=== PATIENT | female | born 1985 | race Caucasian/White ===

== ENCOUNTER 2016-08-19 11:05 | Emergency (ER) | payer MEDICAID ==
[~2016-08-19] VITALS: Ht 160 cm; Wt 60.0 kg
[~2016-08-19 11:05] MED LIST: CIPR500T4 PO; CLIN1CAP5 PO; DICL75 PO; LORTA5 PO; TOPA100T8 PO
[2016-08-19 11:09] VITALS: BP 148/97; PULSE 77; RESP 15; TEMP 98.2; O2SAT 98
[2016-08-19 12:12] LABS: BASOPHIL # 0.1 TH/MM3 (0-0.2); BASOPHIL % 0.7 % (0.0-2.0); EOSINOPHIL # 0.5 TH/MM3 (0-0.4); EOSINOPHIL % 6.8 % (0.0-4.0); HEMATOCRIT 40.8 % (35.0-46.0); HEMO FLAGS DIFF FINAL; LYMPH % 32.9 % (9.0-44.0); LYMPHOCYTE # 2.4 TH/MM3 (1.0-4.8); MEAN CELL VOLUME 94.1 FL (80.0-100.0); MEAN CORPUSCULAR HEMOGLOBIN 32.4 PG (27.0-34.0); MEAN CORPUSCULAR HGB CONC 34.4 % (32.0-36.0); NEUT % 53.6 % (16.0-70.0); PLATELET COUNT 265 TH/MM3 (150-450); RED BLOOD COUNT 4.34 MIL/MM3 (4.00-5.30); RED CELL DISTRIBUTION WIDTH 12.4 % (11.6-17.2); WHITE BLOOD COUNT 7.4 TH/MM3 (4.0-11.0)
[2016-08-19 12:21] LABS: BACTERIA, URINE RARE /hpf; BLOOD, URINE NEG (NEG); COMMENT (UR) CULT NOT INDICATED; CULTURE IF INDICATED CULT NOT INDICATED; GLUCOSE,URINE NEG (NEG); KETONE, URINE NEG (NEG); MUCUS URINE FEW /lpf (OCC); NITRITE,URINE NEG (NEG); SQUAMOUS EPITHELIAL CELL URINE 3 /hpf (0-5); URINE COLOR YELLOW (YELLW/STRAW)
[2016-08-19 12:32] LABS: ALT (GPT) 27 U/L (10-53); ANION GAP 7 MEQ/L (5-15); AST (GOT) 35 U/L (15-37); BICARBONATE 24.9 MEQ/L (21.0-32.0); BLOOD UREA NITROGEN 9 MG/DL (7-18); CHLORIDE 106 MEQ/L (98-107); GLOMERULAR FILTRATION RATE 86 ML/MIN (>89); POTASSIUM 3.7 MEQ/L (3.5-5.1); SODIUM (NA) 138 MEQ/L (136-145)
[2016-08-19 12:35] LABS: ALKALINE PHOSPHATASE 51 U/L (45-117); TOTAL BILIRUBIN ADULT 0.3 MG/DL (0.2-1.0)
--- NOTE | 2016-08-19 12:46 | PD ---
HPI Chief Complaint: Abdominal Pain Time Seen by Provider: 12:35 Travel History International Travel<30 days: No Contact w/Intl Traveler<30days: No Traveled to known affect area: No History of Present Illness HPI 31-year-old female complains of abdominal pain. Patient states that the pain started yesterday. Patient states the pain is sharp pain intermittent pain localized to right low quadrant of the abdomen. Patient denies any pain radiation. Patient states that she has nausea with no vomiting or diarrhea. Patient denies any fever chills. He or frequency. Patient denies any vaginal discharge or bleeding. On a scale of 1-10 the pain is an 8. PFSH Past Medical History Asthma: Yes Anxiety: Yes Depression: Yes Diminished Hearing: No Seizures: Yes ?: Not LMP: 07/2016 : 2 Para: 1 : 1 Past Surgical History Section: Yes (x2) Gynecologic Surgery: Yes () Oral Surgery: Yes (CLEFT PALATE A BABY) Other Surgery: Yes (CLEFT PALAT REPAIR CHILD) Social History Alcohol Use: Yes (occas, mix drink, beer or wine) Tobacco Use: Yes (1 ppd) Substance Use: No Allergies-Medications (Allergen,Severity, Reaction): Coded Allergies: Penicillin (Verified Allergy, Severe, HIVES, 08/19/16) Benadryl (Verified Allergy, Intermediate, DIZZY, 08/19/16) Tramadol (Verified Allergy, Intermediate, MIGRAINES, 08/19/16) Reported Meds & Prescriptions Reported Meds & Active Scripts Active No Active Prescriptions or Reported Medications Review of Systems General / Constitutional: No: Fever Eyes: No: Visual changes HENT: No: Headaches Cardiovascular: No: Chest Pain or Discomfort Respiratory: No: Shortness of Breath Gastrointestinal: Positive: Nausea, Abdominal Pain Genitourinary: No: Dysuria Musculoskeletal: No: Pain Skin: No Rash Neurologic: No: Weakness Psychiatric: No: Depression Endocrine: No: Polydipsia Hematologic/Lymphatic: No: Easy Bruising Physical Exam Narrative GENERAL: Well-nourished, well-developed patient. SKIN: Warm and dry. HEAD: Normocephalic. EYES: No scleral icterus. No injection or drainage. NECK: Supple, trachea midline. No JVD or lymphadenopathy. CARDIOVASCULAR: Regular rate and rhythm without murmurs, gallops, or rubs. RESPIRATORY: Breath sounds equal bilaterally. No accessory muscle use. GASTROINTESTINAL: Abdomen soft, nondistended. Patient has mild tenderness on palpation right lower quadrant of the abdomen. No rebound tenderness. No mass. MUSCULOSKELETAL: No cyanosis, or edema. BACK: Nontender without obvious deformity. No CVA tenderness. Neurologic exam normal. Data Data Last Documented VS Vital Signs Date Time Temp Pulse Resp B/P Pulse Ox O2 Delivery O2 Flow Rate FiO2 08/19/16 12:50 18 08/19/16 12:48 97 2 08/19/16 11:09 98.2 77 148/97 Orders Complete Blood Count With Diff (08/19/16 11:40) Comprehensive Metabolic Panel (08/19/16 11:40) Urinalysis - C+S If Indicated (08/19/16 11:40) Ed Urine Pregnancytest Poc (08/19/16 11:40) Iv Access Insert/Monitor (08/19/16 11:40) Oxygen Administration (08/19/16 11:40) Oximetry (08/19/16 11:40) Lipase (08/19/16 11:40) Ct Abd/Pel W Iv Contrast(Rout) (08/19/16 12:41) Iohexol 350 Inj (Omnipaque 350 Inj) (08/19/16 13:43) Labs Laboratory Tests Test 08/19/16 11:40 White Blood Count 7.4 TH/MM3 Red Blood Count 4.34 MIL/MM3 Hemoglobin 14.1 GM/DL Hematocrit 40.8 % Mean Corpuscular Volume 94.1 FL Mean Corpuscular Hemoglobin 32.4 PG Mean Corpuscular Hemoglobin 34.4 % Concent Red Cell Distribution Width 12.4 % Platelet Count 265 TH/MM3 Mean Platelet Volume 6.5 FL Neutrophils (%) (Auto) 53.6 % Lymphocytes (%) (Auto) 32.9 % Monocytes (%) (Auto) 6.0 % Eosinophils (%) (Auto) 6.8 % Basophils (%) (Auto) 0.7 % Neutrophils # (Auto) 4.0 TH/MM3 Lymphocytes # (Auto) 2.4 TH/MM3 Monocytes # (Auto) 0.4 TH/MM3 Eosinophils # (Auto) 0.5 TH/MM3 Basophils # (Auto) 0.1 TH/MM3 CBC Comment DIFF FINAL Differential Comment Urine Color YELLOW Urine Turbidity CLEAR Urine pH 6.0 Urine Specific [place] 1.024 Urine Protein NEG mg/dL Urine Glucose (UA) NEG mg/dL Urine Ketones NEG mg/dL Urine Occult Blood NEG Urine Nitrite NEG Urine Bilirubin NEG Urine Urobilinogen 2.0 MG/DL Urine Leukocyte Esterase TRACE Urine RBC 1 /hpf Urine WBC 1 /hpf Urine Squamous Epithelial 3 /hpf Cells Urine Bacteria RARE /hpf Urine Mucus FEW /lpf Microscopic Urinalysis Comment CULT NOT INDICATED Sodium Level 138 MEQ/L Potassium Level 3.7 MEQ/L Chloride Level 106 MEQ/L Carbon Dioxide Level 24.9 MEQ/L Anion Gap 7 MEQ/L Blood Urea Nitrogen 9 MG/DL Creatinine 0.79 MG/DL Estimat Glomerular Filtration 86 ML/MIN Rate Random Glucose 83 MG/DL Calcium Level 8.4 MG/DL Total Bilirubin 0.3 MG/DL Aspartate Amino Transf 35 U/L (AST/SGOT) Alanine Aminotransferase 27 U/L (ALT/SGPT) Alkaline Phosphatase 51 U/L Total Protein 7.5 GM/DL Albumin 3.6 GM/DL Lipase 138 U/L [facility] Medical Decision Making Medical Screen Exam Complete: Yes Emergency Medical Condition: Yes Interpretation(s) 12:45 PM. CBC within normal limit. CMP within normal limit. UA is negative. Urine test negative. 1438 PM. CBC within normal limit. CMP within normal limit. UA is negative. CT scan abdomen pelvis negative acute pathology. Differential Diagnosis Differential diagnosis including UTI, pyelonephritis, nephrolithiasis, ovarian cyst, bent torsion, ectopic , appendicitis. Narrative Course 41-year-old female with right low quadrant abdominal pain. Diagnosis Primary Impression: Ruptured ovarian cyst Patient Instructions: General Instructions Additional Instructions: Mobic as needed for pain. Follow-up with personal physician. Return if persistent pain, increasing pain, fever, persistent vomiting. Med/Other Pt SpecificInfo: Prescription(s) given Scripts Meloxicam (Mobic)15 Mg Tab15 Mg PO DAILY #20 TAB Prov:eRdd Loja MD 08/19/16 Disposition: 01 DISCHARGE HOME Condition: Stable Rded Loja MD Aug 19, 2016 12:45
[2016-08-19 12:48] VITALS: O2SAT 97
[2016-08-19] MEDS ORDERED: IOHEXOL 350 MG/ML 10 ML VIAL (for RAD DIAG) IV ONE (13:43)
--- NOTE | 2016-08-19 13:59 | RADRPT ---
EXAM DATE/TIME: 08/19/2016 13:25 [place] COMPARISON: No previous studies available for comparison. INDICATIONS: Right lower quadrant pain. IV CONTRAST: 97 cc Omnipaque 350 (iohexol) IV ORAL CONTRAST: No oral contrast ingested. RADIATION DOSE: 9.96 CTDIvol (mGy) MEDICAL HISTORY: None SURGICAL HISTORY: section. ENCOUNTER: Initial ACUITY: 1 day PAIN SCALE: 8/10 LOCATION: Right lower quadrant TECHNIQUE: Volumetric scanning of the abdomen and pelvis was performed. Using automated exposure control and ad justment of the mA and/or kV according to patient size, radiation dose was kept as low as reasonably achievable to obtain optimal diagnostic quality images. FINDINGS: Lung bases are clear. The liver is free of focal defects. Small apparent cyst is seen in the upper pole of the spleen. Pancreas, adrenals, and kidneys are unremarkable. There is symmetrical renal fu nction. Gallbladder appears unremarkable. Region of the cecum and terminal ileum unremarkable. There is a normal appearing appendix in the rig ht lower quadrant. In the pelvis the uterus is prominent. There is no adnexal mass. There is no free fluid. Abdominal wall is intact. There is no free air. CONCLUSION: Right lower quadrant is unremarkable. I do not see the etiology for the patient's pain. Jame Serrano MD FACR on August 19, 2016 at 13:46 Board Certified Radiologist. This report was verified electronically.
[2016-08-19] MEDS ORDERED: MOBI15TA PO (14:45)
== END 2016-08-19 14:56 | disposition home or self-care (01) ==
LOC: NEPA 11:05
DX: N83.299 Other ovarian cyst, unspecified side (principal); F17.210 Nicotine dependence, cigarettes, uncomplicated
CPT/HCPCS: 74177; 80053; 81001; 83690; 84703; 85025; 99284; Q9967

== ENCOUNTER 2016-10-11 10:34 | Emergency (ER) | payer SELFPAY ==
[~2016-10-11] VITALS: Ht 162.6 cm; Wt 66.4 kg
[~2016-10-11 10:34] MED LIST changes: -CIPR500T4 PO; -CLIN1CAP5 PO; -DICL75 PO; -LORTA5 PO; +MOBI15TA PO; -TOPA100T8 PO
[2016-10-11 10:45] VITALS: BP 122/79; PULSE 68; RESP 16; TEMP 98.4; O2SAT 99
[2016-10-11] MEDS ORDERED: METH40TA PO (10:54)
[2016-10-11] MEDS ORDERED: IBUP200C PO (10:54)
--- NOTE | 2016-10-11 11:06 | PD ---
HPI Chief Complaint: Headache Time Seen by Provider: 10:49 Travel History International Travel<30 days: No Contact w/Intl Traveler<30days: No Traveled to known affect area: No History of Present Illness HPI 31-year-old female presents with left-sided headache. It is been gradually getting worse. She states that she tried Motrin without relief. She states she has history of migraines. She states a couple years ago she had CT and MRI without emergent findings. She denies any trauma. Quality is throbbing. Severity is severe per patient. She denies other concurrent complaints. PFSH Past Medical History Asthma: Yes Anxiety: Yes Depression: Yes Diminished Hearing: No Seizures: Yes Influenza Vaccination: No ?: Not LMP: 09/2016 : 2 Para: 1 : 1 Past Surgical History Section: Yes (x2) Gynecologic Surgery: Yes () Oral Surgery: Yes (CLEFT PALATE A BABY) Other Surgery: Yes (CLEFT PALAT REPAIR CHILD) Social History Alcohol Use: Yes (occas, mix drink, beer or wine) Tobacco Use: Yes (1 ppd) Substance Use: Yes (PILLS) Allergies-Medications (Allergen,Severity, Reaction): Coded Allergies: Penicillin (Verified Allergy, Severe, HIVES, 10/11/16) Benadryl (Verified Allergy, Intermediate, DIZZY, 10/11/16) Tramadol (Verified Allergy, Intermediate, MIGRAINES, 10/11/16) Reported Meds & Prescriptions Reported Meds & Active Scripts Active Phenergan (Promethazine HCl) 25 Mg Tab 25 Mg PO Q6H PRN Reported Ibuprofen 200 Mg Cap 600 Mg PO Q4H PRN Methadone (Methadone HCl) 40 Mg Tab 170 Mg PO DAILY Review of Systems Except as stated in HPI: all other systems reviewed are Neg Physical Exam Narrative GENERAL: Well-nourished, well-developed patient. Well-appearing SKIN: Warm and dry. HEAD: Normocephalic and atraumatic. EYES: No injection or drainage. Pupils equal and reactive bilaterally, extraocular movement intact ENT: No nasal drainage noted. NECK: Supple, trachea midline. No meningeal signs CARDIOVASCULAR: Regular rate and rhythm RESPIRATORY: No increased effort. No accessory muscle use. GASTROINTESTINAL: Abdomen soft, non-tender, nondistended. NEUROLOGICAL: Awake and alert. Motor and sensory grossly within normal limits. Normal speech. 5 out of 5 in all 4 extremities, equal grasp bilaterally Data Data Last Documented VS Vital Signs Date Time Temp Pulse Resp B/P Pulse Ox O2 Delivery O2 Flow Rate FiO2 10/11/16 10:45 98.4 68 16 122/79 99 Orders Ondansetron Odt (Zofran Odt) (10/11/16 11:15) Ketorolac Inj (Toradol Inj) (10/11/16 11:15) MDM Medical Decision Making Medical Screen Exam Complete: Yes Emergency Medical Condition: Yes Medical Record Reviewed: Yes (past history confirmed) Differential Diagnosis Tension, migraine, cluster Narrative Course Patient with benign exam and vitals with recurrent migraine history. Agrees to supportive care. Will dose with Zofran and Toradol after review of allergies with patient and reevaluate. Patient agrees to plan Patient denies any new complaints and states that they are feeling a little better, all questions answered. Patient knows that follow up is incumbent on them and to return to the emergency room immediately if new or worsening symptoms develop. Patient given strict return precautions, vitals reviewed and are normal, agrees to further workup as an outpatient. Diagnosis Primary Impression: Cephalalgia Qualified Code: R51 - Acute nonintractable headache, unspecified headache type Patient Instructions: General Instructions Additional Instructions: alternate tylenol and motrin, phenergan as needed for nausea, set up a primary for follow up this week, return as needed Med/Other Pt SpecificInfo: Prescription(s) given, No Change to Meds Scripts Promethazine (Phenergan)25 Mg Tab25 Mg PO Q6H PRN (NAUSEA OR VOMITING) #10 TAB Prov:Galina Cullen MD 10/11/16 Disposition: 01 DISCHARGE HOME Condition: Stable Galina Cullen MD Oct 11, 2016 11:06
[2016-10-11] MEDS ORDERED: ONDANSETRON ODT 4 MG TAB PO ONE (11:15)
[2016-10-11] MEDS ORDERED: KETOROLAC TROMETHAMINE 60 MG/2 ML (IM) VIAL IM ONE (11:15)
[2016-10-11] MEDS ORDERED: PROM25TA5 PO (12:04)
== END 2016-10-11 12:17 | disposition home or self-care (01) ==
LOC: PHED 10:34
DX: R51 Headache (principal); J45.909 Unspecified asthma, uncomplicated; F17.210 Nicotine dependence, cigarettes, uncomplicated
CPT/HCPCS: 96372; 99283; J1885

== ENCOUNTER 2017-01-05 14:43 | Emergency (ER) | payer SELFPAY ==
[~2017-01-05] VITALS: Ht 162.6 cm; Wt 67.0 kg
[~2017-01-05 14:43] MED LIST changes: +IBUP200C PO; +METH40TA PO; -MOBI15TA PO; +PROM25TA5 PO
[2017-01-05 14:52] VITALS: BP 125/54; PULSE 110; RESP 18; TEMP 98.3; O2SAT 99
[2017-01-05 15:07] VITALS: BP 125/54; PULSE 110; RESP 20; TEMP 98.3; O2SAT 99
[2017-01-05] MEDS ORDERED: TOPA100T11 PO (15:07)
[2017-01-05] MEDS ORDERED: SUBO8MIS SL (15:07)
[2017-01-05] MEDS ORDERED: SODIUM CHLOR 0.9% 1000 ML INJ 1,000 ML IV ONE (15:45)
[2017-01-05] MEDS ORDERED: ONDANSETRON HCL 4 MG/2 ML VIAL IV PUSH ONE (15:45)
[2017-01-05] MEDS ORDERED: cloNIDine HCL 0.1 MG TAB PO ONE (15:45)
[2017-01-05 15:56] LABS: AUTOMATED NEUTROPHIL # 8.8 TH/MM3 (1.8-7.7); BASOPHIL % 0.3 % (0.0-2.0); EOSINOPHIL # 0.1 TH/MM3 (0-0.4); EOSINOPHIL % 0.5 % (0.0-4.0); HEMATOCRIT 44.9 % (35.0-46.0); HEMO FLAGS DIFF FINAL; LYMPH % 11.1 % (9.0-44.0); LYMPHOCYTE # 1.2 TH/MM3 (1.0-4.8); MEAN CELL VOLUME 94.8 FL (80.0-100.0); MEAN CORPUSCULAR HEMOGLOBIN 32.7 PG (27.0-34.0); MEAN CORPUSCULAR HGB CONC 34.5 % (32.0-36.0); MONO % 6.3 % (0.0-8.0); NEUT % 81.8 % (16.0-70.0); PLATELET COUNT 235 TH/MM3 (150-450); RED BLOOD COUNT 4.74 MIL/MM3 (4.00-5.30); RED CELL DISTRIBUTION WIDTH 12.1 % (11.6-17.2); WHITE BLOOD COUNT 10.8 TH/MM3 (4.0-11.0)
[2017-01-05 16:04] LABS: CHLORIDE 107 MEQ/L (98-107); POTASSIUM 3.5 MEQ/L (3.5-5.1); SODIUM (NA) 141 MEQ/L (136-145)
[2017-01-05 16:08] LABS: ANION GAP 10 MEQ/L (5-15); BICARBONATE 24.4 MEQ/L (21.0-32.0); BLOOD UREA NITROGEN 10 MG/DL (7-18); MAGNESIUM 1.6 MG/DL (1.5-2.5)
[2017-01-05 16:10] LABS: ALT (GPT) 59 U/L (10-53); AST (GOT) 75 U/L (15-37); GLOMERULAR FILTRATION RATE 69 ML/MIN (>89)
[2017-01-05 16:12] LABS: TOTAL BILIRUBIN ADULT 0.6 MG/DL (0.2-1.0)
[2017-01-05 16:13] VITALS: BP 124/75; PULSE 96; RESP 18; O2SAT 97
[2017-01-05 16:13] LABS: ALKALINE PHOSPHATASE 56 U/L (45-117)
--- NOTE | 2017-01-05 16:25 | PD ---
HPI Chief Complaint: Alcohol/Drug Intoxication Time Seen by Provider: 15:33 Travel History International Travel<30 days: No Contact w/Intl Traveler<30days: No Traveled to known affect area: No History of Present Illness HPI 31yo F presents to the ED with c/o opioid withdrawal. States she last took her 140mg of methadone yesterday and today the suboxone clinic gave her buprenorphin -naloxone. Pt states she is having NBNB vomiting, shakiness, and nonbloody diarrhea. Denies any fever, chest pain, sob, focal weakness or numbness. PFSH Past Medical History Asthma: Yes Anxiety: Yes Depression: Yes Diminished Hearing: No Immunizations Current: Yes Seizures: Yes Tetanus Vaccination: < 5 Years Influenza Vaccination: No ?: Not LMP: 2 WEEKS : 2 Para: 1 : 1 Tubal Ligation: Yes Past Surgical History Section: Yes (x2) Gynecologic Surgery: Yes () Oral Surgery: Yes (CLEFT PALATE A BABY) Other Surgery: Yes (CLEFT PALAT REPAIR CHILD) Social History Alcohol Use: Yes (occas, mix drink, beer or wine) Tobacco Use: Yes (1 ppd) Substance Use: Yes (PILLS) Allergies-Medications (Allergen,Severity, Reaction): Coded Allergies: Penicillin (Verified Allergy, Severe, HIVES, 01/05/17) Benadryl (Verified Allergy, Intermediate, DIZZY, 01/05/17) Tramadol (Verified Allergy, Intermediate, MIGRAINES, 01/05/17) Reported Meds & Prescriptions Reported Meds & Active Scripts Active Reported Topamax (Topiramate) 100 Mg Tab 100 Mg PO BID Suboxone Sublingual Film (Buprenorphine-Naloxone Sublingual Film) 8-2 Mg Film 1 Film SL BID Unique ID number required: Methadone (Methadone HCl) 40 Mg Tab 140 Mg PO DAILY Review of Systems Except as stated in HPI: all other systems reviewed are Neg Physical Exam Narrative GENERAL: 31yo F in mild distress. SKIN: Focused skin assessment warm/dry. HEAD: Atraumatic. Normocephalic. EYES: Pupils equal and round. No scleral icterus. No injection or drainage. ENT: No nasal bleeding or discharge. Mucous membranes pink and moist. NECK: Trachea midline. No JVD. CARDIOVASCULAR: Mildly tachycardic at 110bpm. No murmur appreciated. RESPIRATORY: No accessory muscle use. Clear to auscultation. Breath sounds equal bilaterally. GASTROINTESTINAL: Abdomen soft, non-tender, nondistended. No rebound tenderness or guarding. MUSCULOSKELETAL: No obvious deformities. No clubbing. No cyanosis. No edema. NEUROLOGICAL: Awake and alert. No obvious cranial nerve deficits. Motor grossly within normal limits. Normal speech. Data Data Last Documented VS Vital Signs Date Time Temp Pulse Resp B/P Pulse Ox O2 Delivery O2 Flow Rate FiO2 01/05/17 16:13 96 18 124/75 97 Room Air 01/05/17 15:07 98.3 Orders Complete Blood Count With Diff (01/05/17 15:39) Comprehensive Metabolic Panel (01/05/17 15:39) Lipase (01/05/17 15:39) Bhcg Screen Qualitative (01/05/17 15:39) Magnesium (Mg) (01/05/17 15:39) Ondansetron Inj (Zofran Inj) (01/05/17 15:45) Sodium Chlor 0.9% 1000 Ml Inj (Ns 1000 M (01/05/17 15:45) Clonidine (Catapres) (01/05/17 15:45) Acetaminophen (Tylenol) (01/05/17 16:30) Labs Laboratory Tests Test 01/05/17 15:18 White Blood Count 10.8 TH/MM3 Red Blood Count 4.74 MIL/MM3 Hemoglobin 15.5 GM/DL Hematocrit 44.9 % Mean Corpuscular Volume 94.8 FL Mean Corpuscular Hemoglobin 32.7 PG Mean Corpuscular Hemoglobin 34.5 % Concent Red Cell Distribution Width 12.1 % Platelet Count 235 TH/MM3 Mean Platelet Volume 7.4 FL Neutrophils (%) (Auto) 81.8 % Lymphocytes (%) (Auto) 11.1 % Monocytes (%) (Auto) 6.3 % Eosinophils (%) (Auto) 0.5 % Basophils (%) (Auto) 0.3 % Neutrophils # (Auto) 8.8 TH/MM3 Lymphocytes # (Auto) 1.2 TH/MM3 Monocytes # (Auto) 0.7 TH/MM3 Eosinophils # (Auto) 0.1 TH/MM3 Basophils # (Auto) 0.0 TH/MM3 CBC Comment DIFF FINAL Differential Comment Sodium Level 141 MEQ/L Potassium Level 3.5 MEQ/L Chloride Level 107 MEQ/L Carbon Dioxide Level 24.4 MEQ/L Anion Gap 10 MEQ/L Blood Urea Nitrogen 10 MG/DL Creatinine 0.96 MG/DL Estimat Glomerular Filtration 69 ML/MIN Rate Random Glucose 111 MG/DL Calcium Level 9.0 MG/DL Magnesium Level 1.6 MG/DL Total Bilirubin 0.6 MG/DL Aspartate Amino Transf 75 U/L (AST/SGOT) Alanine Aminotransferase 59 U/L (ALT/SGPT) Alkaline Phosphatase 56 U/L Total Protein 7.9 GM/DL Albumin 3.7 GM/DL Lipase 257 U/L Beta HCG, Qualitative LESS THAN 1 MIU/ML MDM Medical Decision Making Medical Screen Exam Complete: Yes Emergency Medical Condition: Yes Differential Diagnosis Opioid withdrawal vs. electrolyte abnormality vs. dehydration Narrative Course 31yo F who was on methadone 140mg wanted to get off methadone so she went to a suboxone program today. Labs reviewed, no leukocytosis. AST and ALT elevated but pt did not have abdominal pain. negative. Lipase normal. K: 3.5. Pt given zofran, clonidine and NS IVF. HR has improved. Pt states she is not ready to get off methadone and will go back tomorrow to get back on the methadone. Return precautions given. Diagnosis Primary Impression: Opioid withdrawal Patient Instructions: General Instructions Departure Forms: Tests/Procedures Additional Instructions: Please return to the ED immediately if your symptoms worsen. Please follow up with your suboxone or methadone program tomorrow. Med/Other Pt SpecificInfo: Prescription(s) given Scripts Ondansetron Odt (Zofran Odt)4 Mg Tab4 Mg SL Q12HR PRN (Nausea/Vomiting) #6 TAB Ref 0 Prov:Mylene Cannon DO 01/05/17 Disposition: 01 DISCHARGE HOME Condition: Stable Mylene Cannon DO Jan 05, 2017 16:25
[2017-01-05 16:27] LABS: BHCG SCREEN QUALITATIVE LESS THAN 1 MIU/ML (0-5)
[2017-01-05] MEDS ORDERED: ACETAMINOPHEN 325 MG TAB PO ONE (16:30)
[2017-01-05] MEDS ORDERED: ZOFR4TAB3 SL (17:18)
[2017-01-05 17:27] VITALS: BP 109/69
== END 2017-01-05 17:27 | disposition home or self-care (01) ==
LOC: PHED 14:43
DX: F11.23 Opioid dependence with withdrawal (principal); Z79.899 Other long term (current) drug therapy
CPT/HCPCS: 80053; 83690; 83735; 84703; 85025; 96361; 96374; 99284; J2405; J7030